=== PATIENT | female | born 1955 | race Caucasian/White ===

== ENCOUNTER 2016-11-23 13:56 | Emergency (ER) | payer OTHER ==
[2016-11-23 15:03] VITALS: BP 127/68
--- NOTE | 2016-11-23 16:00 | UC ---
Respiratory Complaint HPI - HPI Summary HPI Summary: URI for past 4d. Started with fever, body aches, ST, now just an irritating cough. Still feeling fatigued, feverish. Mild sinus congestion. Needs note for work, works in [employer]. HIstory of asthma, using inhaler prn - History of Current Complaint Chief Complaint: UCGeneralIllness Stated Complaint: COUGH/HEADACHE/SORE THROAT/DIZZY Time Seen by Provider: 11/23/16 15:47 Hx Obtained From: Patient Hx Last Menstrual Period: years Onset/Duration: Gradual Onset, Lasting Days - 4 Timing: Constant Severity Initially: Mild Character: Cough: Nonproductive Aggravating Factors: Exertion Associated Signs And Symptoms: Positive: Fever, Chills, URI, Nasal Congestion, Hoarseness - Risk Factors Pulmonary Embolism Risk Factors: Negative Cardiac Risk Factors: Negative Tuberculosis Risk Factors: Negative - Allergies/Home Medications Allergies/Adverse Reactions: Allergies Allergy/AdvReac Type Severity Reaction Status Date / Time Nitrofurantoin Allergy Severe Hives Verified 10/27/16 16:37 [From Macrodantin] Buspirone [From Buspar] Allergy Intermediate anxiety, Verified 10/27/16 16:37 anger Sulfa Drugs Allergy Unknown Unknown Verified 10/27/16 16:37 Reaction Details Home Medications: Home Medications Polyethylene Glycol 3350* [Miralax*] 17 gm PO DAILY PRN 11/23/16 [History Confirmed 11/23/16] PMH/Surg Hx/FS Hx/Imm Hx Endocrine History Of: Denies: Diabetes, Thyroid Disease Cardiovascular History Of: Reports: Cardiac Disorders - irregular rhythm, Hypertension Respiratory History Of: Reports: Asthma Denies: COPD GI/ History Of: Reports: Ulcer - Stomach - Surgical History Surgical History: Yes Surgery Procedure, Year, and Place: hysterectomy FACIAL SURG A CHILD. [facility]. T&A. breast biopsy - Family History Known Family History: Positive: Cardiac Disease, Hypertension, Diabetes - Social History Occupation: Employed Full-time Lives: With Family Alcohol Use: Rare Substance Use Type: None Smoking Status (MU): Light Every Day Tobacco Smoker Type: Cigarettes Amount Used/How Often: 1/2 pack daily Length of Time of Smoking/Using Tobacco: 35 Years Have You Smoked in the Last Year: Yes Household Exposure Type: Cigarettes - Immunization History Most Recent Influenza Vaccination: 2014 Review of Systems Constitutional: Negative Skin: Negative Eyes: Negative ENT: Sore Throat, Nasal Discharge Respiratory: Cough Cardiovascular: Negative Gastrointestinal: Negative Genitourinary: Negative Motor: Negative Neurovascular: Negative Musculoskeletal: Myalgia Neurological: Negative Psychological: Negative All Other Systems Reviewed And Are Negative: Yes Physical Exam Triage Information Reviewed: Yes Appearance: Well-Appearing, No Pain Distress, Well-Nourished Vital Signs: Initial Vital Signs Temp 98.0 F 11/23/16 14:58 Pulse 60 11/23/16 14:58 Resp 16 11/23/16 14:58 BP 127/68 11/23/16 14:58 Pulse Ox 98 11/23/16 14:58 Vital Signs Reviewed: Yes Eye Exam: Normal Eyes: Positive: Conjunctiva Clear ENT Exam: Normal ENT: Positive: Pharynx normal, TMs normal Neck exam: Normal Neck: Positive: Supple, Nontender Respiratory Exam: Normal Respiratory: Positive: Lungs clear, Normal breath sounds, No respiratory distress, No accessory muscle use, Respiratory distress Cardiovascular Exam: Normal Musculoskeletal Exam: Normal Neurological Exam: Normal Psychological Exam: Normal Skin Exam: Normal UC Diagnostic Evaluation - Laboratory O2 Sat by Pulse Oximetry: 98 Respiratory Course/Dx - Differential Dx/Diagnosis Differential Diagnosis/HQI/PQRI: Bronchitis, Lower Resp Infection, Sinusitis Provider Diagnoses: URI Discharge - Discharge Plan Condition: Stable Disposition: HOME Prescriptions: Guaifenesin-Codeine [Cheratussin AC] 1 - 2 teasp PO Q6HR PRN #120 ml MDD 30ml PRN Reason: Cough Patient Education Materials: Upper Respiratory Infection (ED) Forms: *Work Release Referrals: RACQUEL Silveira [Primary Care Provider] -
== END 2016-11-23 16:07 | disposition home or self-care (01) ==
LOC: UCCORT 13:56
DX: J06.9 Acute upper respiratory infection, unspecified (principal); Z88.2 Allergy status to sulfonamides; Z88.8 Allergy status to other drugs, medicaments and biological substances; F17.210 Nicotine dependence, cigarettes, uncomplicated
CPT/HCPCS: 99212; G0463